=== PATIENT | male | born 1975 | race African-American/Black ===

== ENCOUNTER 2018-03-22 22:34 | Inpatient (IN) ==
[2018-03-22] MEDS ORDERED: PANTOPRAZOLE 40 MG VIAL IV STA (23:14)
[2018-03-22] MEDS ORDERED: DILTIAZEM 50 MG/10 ML VIAL IV STA (23:14)
[2018-03-22] MEDS ORDERED: DICYCLOMINE 20 MG/2 ML AMP IM ONE (23:14)
[2018-03-22] MEDS ORDERED: ONDANSETRON 4 MG/2 ML VIAL IV STA (23:14)
[2018-03-23 00:08] LABS: Basophils % 0.6 % (0.0-0.8); Eosinophils # 0.1 10*3/uL (0.0-0.87); Eosinophils % 1.3 % (0.00-10.9); Hematocrit 42.2 VOL% (42.0-52.0); Hemoglobin 14.7 GM/DL (14.0-18.0); Immature Granulocytes % 1.1 %; Immature Granulocytes Absolute 0.05 #; Lymphocytes % 21.7 % (21.2-54.2); Mean Corpuscular HGB Conc 34.8 GM/DL (32-36); Mean Corpuscular Hemoglobin 33 PG (27-34); Mean Corpuscular Volume 93.6 FL (87-102); Mean Platelet Volume 11.5 FL (9.6-12.0); Monocytes # 0.5 10*3/uL (0.11-0.8); Monocytes % 10.5 % (1.7-12.7); Neutrophils % 64.8 % (38.7-73.9); Platelet Count 61 T/CUMM (130-400); Red Blood Count 4.51 MC/CUMM (3.8-5.5); Red Cell Distribution Width 14.9 % (9.3-17.3); White Blood Count 4.7 T/CUMM (4-12)
[2018-03-23 00:18] LABS: INR 2.3; Partial Thromboplastin Time 28.1 SECS (0-40)
[2018-03-23 00:24] LABS: Alanine Aminotransferase 48 U/L (16-61); Albumin 3.7 G/DL (3.4-5.0); Alkaline Phosphatase 87 U/L (45-117); Amylase 72 U/L (25-115); Aspartate Amino Transferase 52 U/L (0-37); Blood Urea Nitrogen 22 MG/DL (7-18); Calcium 8.8 MG/DL (8.5-10.1); Glucose 137 MG/DL (74-106); Osmolality,Calculated 279.7 MOS/KG (273-304); Potassium 4.4 MMOL/L (3.5-5.1); Sodium 138 MMOL/L (136-145)
[2018-03-23] MEDS ORDERED: SODIUM CHLORIDE 0.9% 500 ML IV STA (00:25)
[2018-03-23 00:37] LABS: PT Patient Result 23.4 SECS
[2018-03-23] MEDS ORDERED: PROMETHAZINE 25 MG/1 ML VIAL IM PRN (03:29)
[2018-03-23] MEDS ORDERED: MORPHINE 4 MG/1 ML VIAL IV PRN (03:29)
[2018-03-23] MEDS ORDERED: GLUCAGON 1 MG VIAL IM PRN (03:29)
[2018-03-23] MEDS ORDERED: DEXTROSE 50% 25 GM/50 ML VIAL IV PRN (03:29)
[2018-03-23] MEDS: cefTRIAXone 1,000 MG in SYRINGE 1 EACH IV SCH ×2 (05:40→17:56)
[2018-03-23 05:45] LABS: Risk Ratio 3.55; VLDL CHOLESTEROL 25.2 MG/DL
[2018-03-23] MEDS: SODIUM CHLORIDE 0.9% 1,000 ML IV SCH ×2 (05:55→08:12)
[2018-03-23] MEDS ORDERED: CARVEDILOL 25 MG TABLET PO SCH (09:00)
[2018-03-23] MEDS: INSULIN REGULAR 100 UNIT/ML SUBCUT SCH ×4 (10:19→22:43)
[2018-03-23 12:53] LABS: Free T4 (Free Thyroxine) 1.11 NG/DL (0.76-1.46); Thyroid Stimulating Hormone 1.29 uIU/ml (0.358-3.74)
[2018-03-23] MEDS ORDERED: BISACODYL 5 MG TABLET PO ONE (13:18)
[2018-03-23] MEDS ORDERED: MAGNESIUM HYDROXIDE SUSP 30 ML UDCUP PO ONE (13:18)
[2018-03-23] MEDS ORDERED: LACTULOSE 20 GM/30 ML UDCUP PO ONE (13:19)
[2018-03-23] MEDS: FUROSEMIDE 40 MG TABLET PO SCH ×2 (13:44→16:03)
[2018-03-23] MEDS: MAGNESIUM OXIDE 400 MG TABLET PO SCH ×2 (13:56→21:48)
[2018-03-23] MEDS: DOCUSATE SODIUM 100 MG CAPSULE PO SCH ×2 (13:56→21:50)
[2018-03-23] MEDS: POTASSIUM CHLORIDE 20 MEQ TABLET PO SCH ×2 (13:56→21:50)
[2018-03-23] MEDS: SPIRONOLACTONE 25 MG TABLET PO SCH ×2 (13:56→21:48)
[2018-03-23] MEDS: PANTOPRAZOLE 40 MG TABLET PO SCH (13:57)
[2018-03-23] MEDS: MEXILETINE 200 MG CAPSULE PO SCH ×3 (14:00→21:50)
[2018-03-23] MEDS: DIGOXIN 0.5 MG/2 ML AMP IV SCH ×2 (16:03→21:55)
[2018-03-23] MEDS: WARFARIN 5 MG TABLET PO SCH (17:56)
[2018-03-23] MEDS ORDERED: SOTALOL 80 MG TABLET PO ONE (21:00)
[2018-03-23] MEDS: ONDANSETRON 4 MG/2 ML VIAL IV PRN (21:54)
[2018-03-24] MEDS: DIGOXIN 0.5 MG/2 ML AMP IV SCH ×2 (00:01→15:27)
[2018-03-24] MEDS: SODIUM CHLORIDE 0.9% 1,000 ML IV SCH ×4 (00:25→19:18)
[2018-03-24] MEDS ORDERED: ALBUTEROL/IPRATROPIUM 3 ML NEB RESP TX PRN (00:31)
[2018-03-24] MEDS: ALBUTEROL/IPRATROPIUM 3 ML NEB RESP TX SCH ×4 (00:55→20:47)
[2018-03-24] MEDS: ONDANSETRON 4 MG/2 ML VIAL IV PRN (03:57)
[2018-03-24] MEDS: cefTRIAXone 1,000 MG in SYRINGE 1 EACH IV SCH (04:53)
[2018-03-24] MEDS ORDERED: GLUCAGON 1 MG VIAL IM PRN (05:45)
[2018-03-24] MEDS ORDERED: DEXTROSE 50% 25 GM/50 ML VIAL IV PRN (05:45)
[2018-03-24] MEDS ORDERED: LIDOCAINE 100 MG/5 ML SYRINGE IV ONE (05:56)
[2018-03-24] MEDS ORDERED: LIDOCAINE DRIP 2,000 MG/250 ML PREMIX IV SCH (06:00)
[2018-03-24] MEDS ORDERED: NOREPINEPHRINE 16 MG in SODIUM CHLORIDE 0.9% 234 ML IV PRN (06:15)
[2018-03-24] MEDS ORDERED: SODIUM CHLORIDE 0.9% 250 ML IV ONE ×2 (06:15→06:55)
[2018-03-24] MEDS ORDERED: NOREPINEPHRINE 4 MG/4 ML VIAL IV ONE (06:18)
[2018-03-24 06:39] LABS: Lactic Acid 1.9 MMOL/L (0.4-2.0)
[2018-03-24 06:45] LABS: Alanine Aminotransferase 173 U/L (16-61); Albumin 3.4 G/DL (3.4-5.0); Alkaline Phosphatase 75 U/L (45-117); Aspartate Amino Transferase 171 U/L (0-37); Blood Urea Nitrogen 33 MG/DL (7-18); Calcium 8.9 MG/DL (8.5-10.1); Glucose 182 MG/DL (74-106); Osmolality,Calculated 275.5 MOS/KG (273-304); Sodium 132 MMOL/L (136-145); Total Protein 6.8 G/DL (6.4-8.3)
[2018-03-24] MEDS ORDERED: SODIUM POLYSTYRENE SULFATE 15 GM/60 ML BOTTLE PO ONE (06:55)
[2018-03-24] MEDS ORDERED: CALCIUM GLUCONATE 1,000 MG in SODIUM CHLORIDE 0.9% 100 ML IV ONE (06:55)
[2018-03-24] MEDS ORDERED: CALCIUM GLUCONATE 1,000 MG/10 ML VIAL IV ONE (06:58)
[2018-03-24] MEDS ORDERED: VANCOMYCIN INJ 2,000 MG in SODIUM CHLORIDE 0.9% 500 ML IV ONE (08:00)
[2018-03-24 08:05] LABS: Basophils # 0.1 10*3/uL (0.0-0.2); Basophils % 0.4 % (0.0-0.8); Eosinophils % 0.1 % (0.00-10.9); Hematocrit 49.4 VOL% (42.0-52.0); Hemoglobin 15.8 GM/DL (14.0-18.0); Immature Granulocytes % 0.9 %; Immature Granulocytes Absolute 0.13 #; Lymphocytes # 2.4 10*3/uL (1.4-4.0); Lymphocytes % 16.8 % (21.2-54.2); Mean Corpuscular Hemoglobin 32 PG (27-34); Mean Corpuscular Volume 99.4 FL (87-102); Mean Platelet Volume 12.5 FL (9.6-12.0); Monocytes # 1.4 10*3/uL (0.11-0.8); Monocytes % 9.6 % (1.7-12.7); Neutrophils # 10.2 10*3/uL (1.4-7.4); Neutrophils % 72.2 % (38.7-73.9); Red Blood Count 4.97 MC/CUMM (3.8-5.5); Red Cell Distribution Width 15.4 % (9.3-17.3); White Blood Count 14.1 T/CUMM (4-12)
[2018-03-24 08:07] LABS: Platelet Count 150 T/CUMM (130-400)
[2018-03-24 08:50] LABS: ABG Base Excess -4.7 MMOL/L (-2.5-2.5); ABG HCO3 20.3 MMOL/L (20-26); ABG Oxygen Saturation 82.8 % (95-100); ABG PH 7.288 (7.35-7.45); ABG PO2 55.8 MM HG (80-95); ABG TCO2 19.4 MMOL/L (23-27)
[2018-03-24] MEDS ORDERED: SOTALOL 80 MG TABLET PO SCH (09:00)
[2018-03-24] MEDS: INSULIN REGULAR 100 UNIT/ML SUBCUT SCH ×4 (09:15→22:03)
[2018-03-24 09:19] LABS: Glucose Heart Surgery 174 MG/DL (74-106); Hematocrit Heart Surgery 47.7 PERCENT (42-52); Hemoglobin Heart Surgery 15.6 G/DL (14.0-18.0)
[2018-03-24 09:22] LABS: Potassium Heart/CVR 6.4 MMOL/L (3.5-5.1)
[2018-03-24 10:34] LABS: Calcium 9.4 MG/DL (8.5-10.1); Osmolality,Calculated 284.7 MOS/KG (273-304); Potassium 5.5 MMOL/L (3.5-5.1)
[2018-03-24 10:56] LABS: INR 4.1
[2018-03-24 10:57] LABS: PT Patient Result 41.5 SECS
[2018-03-24] MEDS: FUROSEMIDE 40 MG TABLET PO SCH (11:26)
[2018-03-24] MEDS: SPIRONOLACTONE 25 MG TABLET PO SCH (11:26)
[2018-03-24] MEDS: MAGNESIUM OXIDE 400 MG TABLET PO SCH ×3 (11:44→21:57)
[2018-03-24] MEDS: PANTOPRAZOLE 40 MG TABLET PO SCH (11:45)
[2018-03-24] MEDS: DOCUSATE SODIUM 100 MG CAPSULE PO SCH ×2 (11:45→21:55)
[2018-03-24] MEDS: PIPERACILLIN/TAZOBACTAM 3,375 MG in SODIUM CHLORIDE 0.9% 100 ML IV SCH ×3 (11:46→21:55)
[2018-03-24] MEDS ORDERED: DIGOXIN 0.125 MG TABLET PO SCH (13:00)
[2018-03-24] MEDS ORDERED: FUROSEMIDE 40 MG/4 ML VIAL IV ONE ×2 (13:29→19:48)
[2018-03-24] MEDS: MEXILETINE 200 MG CAPSULE PO SCH ×3 (13:45→21:55)
[2018-03-24] MEDS: POTASSIUM CHLORIDE 20 MEQ TABLET PO SCH (13:45)
[2018-03-24] MEDS ORDERED: WARFARIN 7.5 MG TABLET PO SCH (18:00)
[2018-03-25] MEDS: ALBUTEROL/IPRATROPIUM 3 ML NEB RESP TX SCH ×4 (00:52→19:04)
[2018-03-25 03:13] LABS: Basophils % 0.2 % (0.0-0.8); Immature Granulocytes % 0.4 %; Immature Granulocytes Absolute 0.04 #; Lymphocytes # 1.2 10*3/uL (1.4-4.0); Lymphocytes % 10.6 % (21.2-54.2); Mean Corpuscular HGB Conc 33.3 GM/DL (32-36); Mean Corpuscular Hemoglobin 32 PG (27-34); Mean Corpuscular Volume 96.1 FL (87-102); Mean Platelet Volume 11.7 FL (9.6-12.0); Monocytes # 1.1 10*3/uL (0.11-0.8); Monocytes % 9.6 % (1.7-12.7); Neutrophils # 8.9 10*3/uL (1.4-7.4); Neutrophils % 79.2 % (38.7-73.9); Platelet Count 125 T/CUMM (130-400); Red Blood Count 4.37 MC/CUMM (3.8-5.5); Red Cell Distribution Width 14.6 % (9.3-17.3); White Blood Count 11.2 T/CUMM (4-12)
[2018-03-25 03:24] LABS: ABG HCO3 27.1 MMOL/L (20-26); ABG Oxygen Saturation 99.4 % (95-100); ABG PCO2 55.2 MM HG (35-48); ABG PH 7.348 (7.35-7.45); ABG TCO2 26.1 MMOL/L (23-27); Allen Test Positive
[2018-03-25 03:49] LABS: Albumin 3.5 G/DL (3.4-5.0); Bilirubin,Total 1.2 MG/DL (0.2-1.0); Calcium 8.4 MG/DL (8.5-10.1); Total Protein 6.8 G/DL (6.4-8.3)
[2018-03-25 03:50] LABS: Potassium 3.8 MMOL/L (3.5-5.1)
[2018-03-25 04:30] LABS: INR 5.7
[2018-03-25] MEDS: SODIUM CHLORIDE 0.9% 1,000 ML IV SCH ×2 (06:30)
[2018-03-25] MEDS: PIPERACILLIN/TAZOBACTAM 3,375 MG in SODIUM CHLORIDE 0.9% 100 ML IV SCH ×3 (06:31→21:24)
[2018-03-25] MEDS: INSULIN REGULAR 100 UNIT/ML SUBCUT SCH ×4 (09:23→21:01)
[2018-03-25] MEDS: MEXILETINE 200 MG CAPSULE PO SCH ×3 (09:42→21:23)
[2018-03-25] MEDS: DOCUSATE SODIUM 100 MG CAPSULE PO SCH ×2 (09:42→21:23)
[2018-03-25] MEDS: MAGNESIUM OXIDE 400 MG TABLET PO SCH ×2 (09:42→21:23)
[2018-03-25] MEDS: CARVEDILOL 6.25 MG TABLET PO SCH ×2 (09:42→21:23)
[2018-03-25] MEDS: PANTOPRAZOLE 40 MG TABLET PO SCH (09:42)
[2018-03-25] MEDS: DIGOXIN 0.5 MG/2 ML AMP IV SCH (09:43)
[2018-03-25] MEDS ORDERED: VANCOMYCIN INJ 2,000 MG in SODIUM CHLORIDE 0.9% 500 ML IV SCH (15:30)
[2018-03-25] MEDS: FUROSEMIDE 40 MG/4 ML VIAL IV SCH (16:26)
[2018-03-25] MEDS ORDERED: hydrALAZINE 20 MG/1 ML VIAL IV PRN (21:32)
[2018-03-26] MEDS: ALBUTEROL/IPRATROPIUM 3 ML NEB RESP TX SCH ×4 (01:12→18:30)
[2018-03-26 04:49] LABS: ABG Base Excess 7.8 MMOL/L (-2.5-2.5); ABG HCO3 31.6 MMOL/L (20-26); ABG Oxygen Saturation 99.7 % (95-100); ABG PH 7.377 (7.35-7.45); ABG TCO2 31.1 MMOL/L (23-27); Allen Test Positive
[2018-03-26 05:20] LABS: Basophils % 0.1 % (0.0-0.8); Eosinophils % 0.4 % (0.00-10.9); Hematocrit 36.9 VOL% (42.0-52.0); Hemoglobin 12.5 GM/DL (14.0-18.0); Immature Granulocytes % 0.5 %; Immature Granulocytes Absolute 0.04 #; Lymphocytes # 0.9 10*3/uL (1.4-4.0); Lymphocytes % 12.6 % (21.2-54.2); Mean Corpuscular HGB Conc 33.9 GM/DL (32-36); Mean Corpuscular Hemoglobin 33 PG (27-34); Mean Corpuscular Volume 96.6 FL (87-102); Mean Platelet Volume 10.8 FL (9.6-12.0); Neutrophils # 5.4 10*3/uL (1.4-7.4); Neutrophils % 72.4 % (38.7-73.9); Platelet Count 111 T/CUMM (130-400); Red Blood Count 3.82 MC/CUMM (3.8-5.5); Red Cell Distribution Width 14.5 % (9.3-17.3); White Blood Count 7.5 T/CUMM (4-12)
[2018-03-26 05:34] LABS: Calcium 7.6 MG/DL (8.5-10.1); Osmolality,Calculated 280.4 MOS/KG (273-304); Potassium 3.8 MMOL/L (3.5-5.1)
[2018-03-26 05:38] LABS: INR 7.9
[2018-03-26] MEDS: PIPERACILLIN/TAZOBACTAM 3,375 MG in SODIUM CHLORIDE 0.9% 100 ML IV SCH ×2 (06:05→15:09)
[2018-03-26] MEDS: INSULIN REGULAR 100 UNIT/ML SUBCUT SCH ×4 (07:32→20:51)
[2018-03-26] MEDS: DIGOXIN 0.5 MG/2 ML AMP IV SCH (08:22)
[2018-03-26] MEDS: MAGNESIUM OXIDE 400 MG TABLET PO SCH ×2 (08:23→20:52)
[2018-03-26] MEDS: DOCUSATE SODIUM 100 MG CAPSULE PO SCH ×2 (08:23→20:52)
[2018-03-26] MEDS: CARVEDILOL 12.5 MG TABLET PO SCH ×2 (08:23→20:52)
[2018-03-26] MEDS: PANTOPRAZOLE 40 MG TABLET PO SCH (08:24)
[2018-03-26] MEDS: MEXILETINE 200 MG CAPSULE PO SCH ×3 (08:25→20:52)
[2018-03-26] MEDS: FUROSEMIDE 40 MG/4 ML VIAL IV SCH ×2 (08:33→15:01)
[2018-03-26] MEDS ORDERED: DIGOXIN 0.125 MG TABLET PO SCH (13:00)
[2018-03-27] MEDS: ALBUTEROL/IPRATROPIUM 3 ML NEB RESP TX SCH ×4 (00:45→19:10)
[2018-03-27 04:30] LABS: ABG Base Excess 8.7 MMOL/L (-2.5-2.5); ABG HCO3 35.3 MMOL/L (20-26); ABG Oxygen Saturation 97.8 % (95-100); ABG PCO2 57.2 MM HG (35-48); ABG PH 7.408 (7.35-7.45); ABG PO2 107.9 MM HG (80-95); Allen Test Positive
[2018-03-27 05:36] LABS: Basophils % 0.1 % (0.0-0.8); Eosinophils % 0.1 % (0.00-10.9); Hematocrit 37.8 VOL% (42.0-52.0); Hemoglobin 12.6 GM/DL (14.0-18.0); Immature Granulocytes % 0.6 %; Immature Granulocytes Absolute 0.04 #; Lymphocytes # 0.9 10*3/uL (1.4-4.0); Mean Corpuscular HGB Conc 33.3 GM/DL (32-36); Mean Corpuscular Hemoglobin 33 PG (27-34); Mean Corpuscular Volume 97.4 FL (87-102); Mean Platelet Volume 11.1 FL (9.6-12.0); Monocytes # 0.9 10*3/uL (0.11-0.8); Neutrophils # 5.3 10*3/uL (1.4-7.4); Neutrophils % 74.2 % (38.7-73.9); Platelet Count 119 T/CUMM (130-400); Red Blood Count 3.88 MC/CUMM (3.8-5.5); Red Cell Distribution Width 14.7 % (9.3-17.3); White Blood Count 7.1 T/CUMM (4-12)
[2018-03-27 06:03] LABS: Calcium 8.4 MG/DL (8.5-10.1); Potassium 3.7 MMOL/L (3.5-5.1)
[2018-03-27 06:09] LABS: PT Patient Result 59.2 SECS
[2018-03-27] MEDS: INSULIN REGULAR 100 UNIT/ML SUBCUT SCH ×4 (07:41→21:51)
[2018-03-27] MEDS: FUROSEMIDE 40 MG/4 ML VIAL IV SCH ×2 (07:47→17:42)
[2018-03-27] MEDS: MAGNESIUM OXIDE 400 MG TABLET PO SCH ×2 (08:51→21:59)
[2018-03-27] MEDS: MEXILETINE 200 MG CAPSULE PO SCH ×3 (08:51→21:59)
[2018-03-27] MEDS: CARVEDILOL 25 MG TABLET PO SCH ×2 (08:52→22:00)
[2018-03-27] MEDS: DOCUSATE SODIUM 100 MG CAPSULE PO SCH ×3 (08:52→22:00)
[2018-03-27] MEDS: PANTOPRAZOLE 40 MG TABLET PO SCH (08:52)
[2018-03-27] MEDS: WARFARIN 5 MG TABLET PO SCH (17:44)
[2018-03-28] MEDS: ALBUTEROL/IPRATROPIUM 3 ML NEB RESP TX SCH ×4 (00:10→19:22)
[2018-03-28 06:38] LABS: Basophils % 0.2 % (0.0-0.8); Eosinophils # 0.1 10*3/uL (0.0-0.87); Eosinophils % 0.9 % (0.00-10.9); Hematocrit 36.2 VOL% (42.0-52.0); Hemoglobin 11.8 GM/DL (14.0-18.0); Immature Granulocytes % 0.5 %; Immature Granulocytes Absolute 0.03 #; Lymphocytes # 0.9 10*3/uL (1.4-4.0); Mean Corpuscular HGB Conc 32.6 GM/DL (32-36); Mean Corpuscular Hemoglobin 32 PG (27-34); Mean Corpuscular Volume 97.3 FL (87-102); Mean Platelet Volume 10.9 FL (9.6-12.0); Monocytes # 0.8 10*3/uL (0.11-0.8); Monocytes % 14.8 % (1.7-12.7); Neutrophils # 3.9 10*3/uL (1.4-7.4); Neutrophils % 67.6 % (38.7-73.9); Platelet Count 116 T/CUMM (130-400); Red Blood Count 3.72 MC/CUMM (3.8-5.5); Red Cell Distribution Width 14.2 % (9.3-17.3); White Blood Count 5.7 T/CUMM (4-12)
[2018-03-28 06:51] LABS: INR 3.1
[2018-03-28 07:05] LABS: Calcium 8.5 MG/DL (8.5-10.1); Potassium 3.4 MMOL/L (3.5-5.1)
[2018-03-28] MEDS: DOCUSATE SODIUM 100 MG CAPSULE PO SCH ×2 (09:44→20:51)
[2018-03-28] MEDS: MAGNESIUM OXIDE 400 MG TABLET PO SCH ×2 (09:44→20:50)
[2018-03-28] MEDS: FUROSEMIDE 40 MG/4 ML VIAL IV SCH ×2 (09:45→17:20)
[2018-03-28] MEDS: CARVEDILOL 25 MG TABLET PO SCH ×2 (09:45→20:50)
[2018-03-28] MEDS: MEXILETINE 200 MG CAPSULE PO SCH ×3 (09:45→20:50)
[2018-03-28] MEDS: SPIRONOLACTONE 25 MG TABLET PO SCH (09:45)
[2018-03-28] MEDS: INSULIN REGULAR 100 UNIT/ML SUBCUT SCH ×5 (09:49→21:03)
[2018-03-28] MEDS: PANTOPRAZOLE 40 MG TABLET PO SCH (09:59)
[2018-03-28] MEDS: POTASSIUM CHLORIDE 20 MEQ TABLET PO PRN ×2 (12:25→15:09)
[2018-03-28] MEDS ORDERED: MAGNESIUM SULF RIDER 1 GM in PREMIX 1 EACH IV ONE (17:00)
[2018-03-28] MEDS: POTASSIUM CHLORIDE 20 MEQ TABLET PO SCH ×2 (17:20→20:51)
[2018-03-28] MEDS: WARFARIN 5 MG TABLET PO SCH (17:23)
[2018-03-29] MEDS: ALBUTEROL/IPRATROPIUM 3 ML NEB RESP TX SCH ×4 (00:24→19:35)
[2018-03-29 06:18] LABS: Basophils % 0.1 % (0.0-0.8); Hematocrit 36.6 VOL% (42.0-52.0); Hemoglobin 12.4 GM/DL (14.0-18.0); Immature Granulocytes % 0.4 %; Immature Granulocytes Absolute 0.03 #; Lymphocytes # 0.7 10*3/uL (1.4-4.0); Lymphocytes % 9.7 % (21.2-54.2); Mean Corpuscular HGB Conc 33.9 GM/DL (32-36); Mean Corpuscular Hemoglobin 32 PG (27-34); Mean Corpuscular Volume 95.1 FL (87-102); Mean Platelet Volume 11.4 FL (9.6-12.0); Monocytes # 0.9 10*3/uL (0.11-0.8); Monocytes % 13.4 % (1.7-12.7); Neutrophils # 5.2 10*3/uL (1.4-7.4); Neutrophils % 76.4 % (38.7-73.9); Platelet Count 134 T/CUMM (130-400); Red Blood Count 3.85 MC/CUMM (3.8-5.5); Red Cell Distribution Width 14.5 % (9.3-17.3); White Blood Count 6.8 T/CUMM (4-12)
[2018-03-29 06:54] LABS: Calcium 8.6 MG/DL (8.5-10.1); Osmolality,Calculated 270.1 MOS/KG (273-304); Potassium 4.2 MMOL/L (3.5-5.1)
[2018-03-29] MEDS ORDERED: FUROSEMIDE 40 MG/4 ML VIAL IV ONE (09:38)
[2018-03-29] MEDS: SPIRONOLACTONE 25 MG TABLET PO SCH (10:15)
[2018-03-29] MEDS: PANTOPRAZOLE 40 MG TABLET PO SCH (10:25)
[2018-03-29] MEDS: CARVEDILOL 25 MG TABLET PO SCH ×2 (10:25→17:38)
[2018-03-29] MEDS: MEXILETINE 200 MG CAPSULE PO SCH ×3 (10:25→20:45)
[2018-03-29] MEDS: MAGNESIUM OXIDE 400 MG TABLET PO SCH ×2 (10:25→20:45)
[2018-03-29] MEDS: FUROSEMIDE 40 MG/4 ML VIAL IV SCH ×2 (12:59→17:38)
[2018-03-29] MEDS: INSULIN REGULAR 100 UNIT/ML SUBCUT SCH ×3 (12:59→20:44)
[2018-03-29] MEDS: DOCUSATE SODIUM 100 MG CAPSULE PO SCH ×2 (12:59→20:43)
[2018-03-29] MEDS: WARFARIN 5 MG TABLET PO SCH (18:35)
[2018-03-30] MEDS: ALBUTEROL/IPRATROPIUM 3 ML NEB RESP TX SCH ×3 (01:28→13:05)
[2018-03-30 05:58] LABS: Basophils % 0.1 % (0.0-0.8); Eosinophils % 0.4 % (0.00-10.9); Hematocrit 36.2 VOL% (42.0-52.0); Hemoglobin 12.1 GM/DL (14.0-18.0); Immature Granulocytes % 0.7 %; Immature Granulocytes Absolute 0.05 #; Lymphocytes # 0.9 10*3/uL (1.4-4.0); Lymphocytes % 12.9 % (21.2-54.2); Mean Corpuscular HGB Conc 33.4 GM/DL (32-36); Mean Corpuscular Hemoglobin 32 PG (27-34); Mean Corpuscular Volume 96.3 FL (87-102); Mean Platelet Volume 11.5 FL (9.6-12.0); Monocytes % 14.9 % (1.7-12.7); Neutrophils # 4.8 10*3/uL (1.4-7.4); Platelet Count 124 T/CUMM (130-400); Red Blood Count 3.76 MC/CUMM (3.8-5.5); Red Cell Distribution Width 14.4 % (9.3-17.3); White Blood Count 6.8 T/CUMM (4-12)
[2018-03-30 06:17] LABS: INR 1.7; PT Patient Result 17.4 SECS
[2018-03-30 06:23] LABS: Calcium 8.8 MG/DL (8.5-10.1); Potassium 3.6 MMOL/L (3.5-5.1)
[2018-03-30] MEDS: MAGNESIUM OXIDE 400 MG TABLET PO SCH ×2 (08:16→22:13)
[2018-03-30] MEDS: PANTOPRAZOLE 40 MG TABLET PO SCH (08:16)
[2018-03-30] MEDS: DOCUSATE SODIUM 100 MG CAPSULE PO SCH ×2 (08:16→22:12)
[2018-03-30] MEDS: SPIRONOLACTONE 25 MG TABLET PO SCH (08:16)
[2018-03-30] MEDS: INSULIN REGULAR 100 UNIT/ML SUBCUT SCH ×4 (08:16→22:08)
[2018-03-30] MEDS: CARVEDILOL 25 MG TABLET PO SCH ×2 (08:19→17:42)
[2018-03-30] MEDS: MEXILETINE 200 MG CAPSULE PO SCH ×3 (08:19→22:13)
[2018-03-30] MEDS: FUROSEMIDE 40 MG/4 ML VIAL IV SCH ×2 (08:21→15:57)
[2018-03-30] MEDS ORDERED: ALBUTEROL/IPRATROPIUM 3 ML NEB RESP TX PRN (16:38)
[2018-03-30] MEDS: WARFARIN 5 MG TABLET PO SCH (17:42)
[2018-03-30] MEDS ORDERED: AZITHROMYCIN INJ 500 MG in SODIUM CHLORIDE 0.9% 250 ML IV SCH (18:00)
[2018-03-30] MEDS: POTASSIUM CHLORIDE 20 MEQ TABLET PO SCH (22:12)
[2018-03-30] MEDS: CIPROFLOXACIN/DEXAMETHASONE OTIC SUSP 7.5 ML BOTTLE BOTH EARS SCH (22:22)
[2018-03-31 06:06] LABS: Basophils % 0.5 % (0.0-0.8); Eosinophils # 0.1 10*3/uL (0.0-0.87); Eosinophils % 1.1 % (0.00-10.9); Hematocrit 35.5 VOL% (42.0-52.0); Hemoglobin 11.8 GM/DL (14.0-18.0); Immature Granulocytes % 0.9 %; Immature Granulocytes Absolute 0.06 #; Lymphocytes # 1.2 10*3/uL (1.4-4.0); Lymphocytes % 18.1 % (21.2-54.2); Mean Corpuscular HGB Conc 33.2 GM/DL (32-36); Mean Corpuscular Hemoglobin 32 PG (27-34); Mean Corpuscular Volume 95.4 FL (87-102); Mean Platelet Volume 10.8 FL (9.6-12.0); Monocytes % 14.5 % (1.7-12.7); Neutrophils # 4.3 10*3/uL (1.4-7.4); Neutrophils % 64.9 % (38.7-73.9); Platelet Count 143 T/CUMM (130-400); Red Blood Count 3.72 MC/CUMM (3.8-5.5); Red Cell Distribution Width 14.4 % (9.3-17.3); White Blood Count 6.6 T/CUMM (4-12)
[2018-03-31 06:13] LABS: INR 1.7
[2018-03-31 06:29] LABS: Calcium 8.7 MG/DL (8.5-10.1); Osmolality,Calculated 269.2 MOS/KG (273-304); Potassium 3.5 MMOL/L (3.5-5.1)
[2018-03-31] MEDS: INSULIN REGULAR 100 UNIT/ML SUBCUT SCH ×4 (07:39→22:05)
[2018-03-31] MEDS: POTASSIUM CHLORIDE 20 MEQ TABLET PO SCH ×2 (09:09→22:07)
[2018-03-31] MEDS: MEXILETINE 200 MG CAPSULE PO SCH ×3 (09:09→22:07)
[2018-03-31] MEDS: CIPROFLOXACIN/DEXAMETHASONE OTIC SUSP 7.5 ML BOTTLE BOTH EARS SCH ×2 (09:09→22:06)
[2018-03-31] MEDS: FUROSEMIDE 40 MG/4 ML VIAL IV SCH ×2 (09:10→15:44)
[2018-03-31] MEDS: SPIRONOLACTONE 25 MG TABLET PO SCH (09:10)
[2018-03-31] MEDS: CARVEDILOL 25 MG TABLET PO SCH ×2 (09:10→17:34)
[2018-03-31] MEDS: MAGNESIUM OXIDE 400 MG TABLET PO SCH ×2 (09:10→22:07)
[2018-03-31] MEDS: PANTOPRAZOLE 40 MG TABLET PO SCH (09:10)
[2018-03-31] MEDS: DOCUSATE SODIUM 100 MG CAPSULE PO SCH ×2 (09:18→22:05)
[2018-03-31] MEDS: WARFARIN 5 MG TABLET PO SCH (17:34)
[2018-04-01 05:31] LABS: Basophils % 0.3 % (0.0-0.8); Eosinophils # 0.1 10*3/uL (0.0-0.87); Eosinophils % 1.2 % (0.00-10.9); Hematocrit 36.4 VOL% (42.0-52.0); Hemoglobin 12.5 GM/DL (14.0-18.0); Immature Granulocytes % 0.7 %; Immature Granulocytes Absolute 0.04 #; Lymphocytes # 0.9 10*3/uL (1.4-4.0); Lymphocytes % 15.5 % (21.2-54.2); Mean Corpuscular HGB Conc 34.3 GM/DL (32-36); Mean Corpuscular Hemoglobin 32 PG (27-34); Mean Corpuscular Volume 93.6 FL (87-102); Mean Platelet Volume 10.8 FL (9.6-12.0); Monocytes # 0.7 10*3/uL (0.11-0.8); Neutrophils # 4.2 10*3/uL (1.4-7.4); Neutrophils % 70.3 % (38.7-73.9); Platelet Count 156 T/CUMM (130-400); Red Blood Count 3.89 MC/CUMM (3.8-5.5); Red Cell Distribution Width 14.7 % (9.3-17.3)
[2018-04-01 05:39] LABS: INR 1.7; PT Patient Result 17.3 SECS
[2018-04-01 06:01] LABS: Osmolality,Calculated 276.8 MOS/KG (273-304)
[2018-04-01] MEDS: SPIRONOLACTONE 25 MG TABLET PO SCH (09:52)
[2018-04-01] MEDS: CARVEDILOL 25 MG TABLET PO SCH ×2 (09:52→17:48)
[2018-04-01] MEDS: DOCUSATE SODIUM 100 MG CAPSULE PO SCH ×2 (09:52→21:44)
[2018-04-01] MEDS: PANTOPRAZOLE 40 MG TABLET PO SCH (09:52)
[2018-04-01] MEDS: MAGNESIUM OXIDE 400 MG TABLET PO SCH ×2 (09:52→21:44)
[2018-04-01] MEDS: POTASSIUM CHLORIDE 20 MEQ TABLET PO SCH ×2 (09:52→21:45)
[2018-04-01] MEDS: MEXILETINE 200 MG CAPSULE PO SCH ×3 (09:52→21:44)
[2018-04-01] MEDS: INSULIN REGULAR 100 UNIT/ML SUBCUT SCH ×3 (09:53→17:48)
[2018-04-01] MEDS: FUROSEMIDE 40 MG/4 ML VIAL IV SCH ×2 (09:53→15:23)
[2018-04-01] MEDS: CIPROFLOXACIN/DEXAMETHASONE OTIC SUSP 7.5 ML BOTTLE BOTH EARS SCH ×2 (09:53→21:49)
[2018-04-01] MEDS ORDERED: WARFARIN 5 MG TABLET PO SCH (15:33)
[2018-04-02] MEDS: INSULIN REGULAR 100 UNIT/ML SUBCUT SCH ×5 (00:47→22:17)
[2018-04-02 05:45] LABS: Basophils % 0.5 % (0.0-0.8); Eosinophils # 0.1 10*3/uL (0.0-0.87); Eosinophils % 1.6 % (0.00-10.9); Hematocrit 36.4 VOL% (42.0-52.0); Hemoglobin 11.9 GM/DL (14.0-18.0); Immature Granulocytes % 0.7 %; Immature Granulocytes Absolute 0.04 #; Lymphocytes # 1.4 10*3/uL (1.4-4.0); Mean Corpuscular HGB Conc 32.7 GM/DL (32-36); Mean Corpuscular Hemoglobin 32 PG (27-34); Mean Corpuscular Volume 97.1 FL (87-102); Mean Platelet Volume 11.4 FL (9.6-12.0); Monocytes # 0.8 10*3/uL (0.11-0.8); Monocytes % 12.5 % (1.7-12.7); Neutrophils # 3.9 10*3/uL (1.4-7.4); Neutrophils % 62.7 % (38.7-73.9); Platelet Count 159 T/CUMM (130-400); Red Blood Count 3.75 MC/CUMM (3.8-5.5); Red Cell Distribution Width 14.6 % (9.3-17.3); White Blood Count 6.2 T/CUMM (4-12)
[2018-04-02 05:50] LABS: INR 1.6; PT Patient Result 16.7 SECS
[2018-04-02 06:12] LABS: Calcium 8.9 MG/DL (8.5-10.1); Osmolality,Calculated 275.7 MOS/KG (273-304); Potassium 4.3 MMOL/L (3.5-5.1)
[2018-04-02] MEDS: MEXILETINE 200 MG CAPSULE PO SCH ×3 (09:25→21:25)
[2018-04-02] MEDS: POTASSIUM CHLORIDE 20 MEQ TABLET PO SCH ×2 (09:25→21:25)
[2018-04-02] MEDS: PANTOPRAZOLE 40 MG TABLET PO SCH (09:25)
[2018-04-02] MEDS: MAGNESIUM OXIDE 400 MG TABLET PO SCH ×2 (09:25→21:27)
[2018-04-02] MEDS: SPIRONOLACTONE 25 MG TABLET PO SCH (09:26)
[2018-04-02] MEDS: CARVEDILOL 25 MG TABLET PO SCH ×2 (09:26→17:37)
[2018-04-02] MEDS: CIPROFLOXACIN/DEXAMETHASONE OTIC SUSP 7.5 ML BOTTLE BOTH EARS SCH ×2 (09:27→21:00)
[2018-04-02] MEDS: DOCUSATE SODIUM 100 MG CAPSULE PO SCH ×2 (09:27→21:27)
[2018-04-02] MEDS: FUROSEMIDE 40 MG/4 ML VIAL IV SCH ×2 (09:27→17:37)
[2018-04-02] MEDS ORDERED: metOLazone 5 MG TABLET PO ONE (10:00)
[2018-04-02] MEDS: DOXYCYCLINE HYCLATE 100 MG CAPSULE PO SCH ×2 (12:10→21:25)
[2018-04-02] MEDS ORDERED: WARFARIN 3 MG TABLET PO SCH (18:00)
[2018-04-02] MEDS ORDERED: WARFARIN 3 MG TABLET PO ONE (18:00)
[2018-04-03 05:27] LABS: INR 1.8; PT Patient Result 18.2 SECS
[2018-04-03 05:33] LABS: Calcium 9.1 MG/DL (8.5-10.1); Potassium 3.7 MMOL/L (3.5-5.1)
[2018-04-03] MEDS: INSULIN REGULAR 100 UNIT/ML SUBCUT SCH ×3 (08:28→15:30)
[2018-04-03] MEDS: MAGNESIUM OXIDE 400 MG TABLET PO SCH (08:32)
[2018-04-03] MEDS: FUROSEMIDE 40 MG/4 ML VIAL IV SCH (08:32)
[2018-04-03] MEDS: PANTOPRAZOLE 40 MG TABLET PO SCH (08:32)
[2018-04-03] MEDS: SPIRONOLACTONE 25 MG TABLET PO SCH (08:32)
[2018-04-03] MEDS: MEXILETINE 200 MG CAPSULE PO SCH ×2 (08:32→14:04)
[2018-04-03] MEDS: DOXYCYCLINE HYCLATE 100 MG CAPSULE PO SCH (08:32)
[2018-04-03] MEDS: POTASSIUM CHLORIDE 20 MEQ TABLET PO SCH (08:32)
[2018-04-03] MEDS: CARVEDILOL 25 MG TABLET PO SCH ×2 (08:32→17:00)
[2018-04-03] MEDS: DOCUSATE SODIUM 100 MG CAPSULE PO SCH (08:40)
[2018-04-03] MEDS: CIPROFLOXACIN/DEXAMETHASONE OTIC SUSP 7.5 ML BOTTLE BOTH EARS SCH (08:40)
[2018-04-03] MEDS ORDERED: metOLazone 5 MG TABLET PO ONE (11:30)
[2018-04-03] MEDS ORDERED: WARFARIN 3 MG TABLET PO ONE (13:34)
[2018-04-03] MEDS ORDERED: ENOXAPARIN 150 MG/ML SYRINGE SUBCUT ONE (15:05)
[2018-04-03] MEDS ORDERED: FUROSEMIDE 80 MG TABLET PO SCH (16:00)
[2018-04-03 17:14] VITALS: BP 115/79
== END 2018-04-03 17:00 | disposition home or self-care (01) | DRG 308 ==
LOC: N.ED 22:34 → SUATTDRO 03-23 02:08 → N.EDINP 03-23 02:08 → N.TELEN 03-23 02:41 → N.ICU 03-24 07:01 → N.TELES 03-27 13:44
PROVIDERS: ATTEND Internal Medicine